=== PATIENT | female | born 1985 | race African-American/Black ===

== ENCOUNTER 2023-07-06 11:15 | Emergency (ER) | payer MEDICARE, OTHER ==
[~2023-07-06] VITALS: Ht 160 cm; Wt 87.6 kg
[2023-07-06 11:15] VITALS: BP 130/86; TEMP 98.9; O2SAT 100
[2023-07-06] MEDS ORDERED: DEPA500T2 PO (11:29)
[2023-07-06] MEDS ORDERED: RISP4TAB33 PO (11:29)
[2023-07-06] MEDS ORDERED: LEXA1TAB2 PO ×2 (11:29→15:38)
[2023-07-06] MEDS ORDERED: SUBO12MI SL (11:29)
[2023-07-06 13:49] LABS: HEMATOCRIT 42.2 % (36.0-47.0); HEMOGLOBIN 14.1 g/dl (12.0-15.5); MEAN CORPUSCULAR HEMOGLOBIN 28.1 pg (27.0-33.0); MEAN CORPUSCULAR HGB CONC 33.4 g/dl (32.0-36.5); MEAN CORPUSCULAR VOLUME 84.1 fl (80.0-96.0); PLATELET COUNT, AUTOMATED 396 10^3/uL (150-450); RED BLOOD COUNT 5.02 10^6/uL (4.00-5.40); WHITE BLOOD COUNT 8.4 10^3/uL (4.0-10.0)
[2023-07-06 14:15] LABS: AMPHETAMINES LEVEL URINE NEGATIVE (NEGATIVE)
[2023-07-06 14:16] LABS: BARBITURATES URINE NEGATIVE (NEGATIVE); BENZODIAZEPINES URINE NEGATIVE (NEGATIVE); COCAINE METABOLITE URINE NEGATIVE (NEGATIVE); METHADONE URINE NEGATIVE (NEGATIVE); OPIATES URINE NEGATIVE (NEGATIVE); PHENCYCLIDINE URINE NEGATIVE (NEGATIVE)
[2023-07-06 14:17] LABS: HCG, SERUM QUALITATIVE NEGATIVE (NEGATIVE)
[2023-07-06 14:18] LABS: ETHYL ALCOHOL (ETHANOL) 0.006 % (0.000-0.010)
[2023-07-06 14:20] LABS: ALBUMIN 3.4 G/DL (3.2-5.2); ALKALINE PHOSPHATASE 134 U/L (46-116); ALT/SGPT 46 U/L (7.0-40); AST/SGOT 25 U/L (<34); BILIRUBIN,DIRECT 0.1 MG/DL (<0.4); BILIRUBIN,TOTAL 0.3 MG/DL (0.3-1.2); BLOOD UREA NITROGEN 5 MG/DL (9-23); CALCIUM LEVEL 9.3 MG/DL (8.5-10.1); CARBON DIOXIDE LEVEL 26 MMOL/L (20-31); CHLORIDE LEVEL 106 MMOL/L (98-107); CREATININE FOR GFR 0.64 MG/DL (0.55-1.30); GLOMERULAR FILTRATION RATE > 60.0 (>60); GLUCOSE, FASTING 105 MG/DL (60-100); POTASSIUM SERUM 3.6 MMOL/L (3.5-5.1); SALICYLATE LEVEL < 3.0 MG/DL (<30); SODIUM LEVEL 139 MMOL/L (136-145); TOTAL PROTEIN 7.1 G/DL (5.7-8.2)
[2023-07-06 14:21] LABS: THYROID STIMULATING HORMONE 0.314 uIU/ML (0.55-4.78)
[2023-07-06 14:25] LABS: CANNABINOIDS URINE POSITIVE (NEGATIVE)
[2023-07-06] MEDS ORDERED: TOPA50TA8 PO (15:38)
[2023-07-06] MEDS ORDERED: SUBO8MIS SL (15:38)
[2023-07-06] MEDS ORDERED: HYDR-3363 PO (15:38)
[2023-07-06] MEDS ORDERED: PRAZ2CAP PO (15:38)
[2023-07-06] MEDS ORDERED: ZYPR20TA PO (15:38)
[2023-07-06] MEDS ORDERED: BUPR1SUB5 SL (16:37)
== END 2023-07-06 16:23 | disposition home or self-care (01) ==
LOC: M ED 11:15
DX: Z76.0 Encounter for issue of repeat prescription (principal); F32.A Depression, unspecified; F20.9 Schizophrenia, unspecified; F41.9 Anxiety disorder, unspecified; Z79.899 Other long term (current) drug therapy; Z88.2 Allergy status to sulfonamides

== ENCOUNTER 2023-08-03 14:46 | Emergency (ER) | payer MEDICARE, OTHER ==
[~2023-08-03] VITALS: Ht 160 cm; Wt 94.0 kg
[~2023-08-03 14:46] MED LIST: BUPR1SUB5 SL; DEPA500T2 PO; HYDR-3363 PO; LEXA1TAB2 PO; PRAZ2CAP PO; RISP4TAB33 PO; SUBO12MI SL; SUBO8MIS SL; TOPA50TA8 PO; ZYPR20TA PO
[2023-08-03 18:01] VITALS: BP 121/69; TEMP 98.7; O2SAT 97
== END 2023-08-03 18:59 | disposition home or self-care (01) ==
LOC: M ED 14:46
DX: Z76.0 Encounter for issue of repeat prescription (principal); F41.9 Anxiety disorder, unspecified; F32.A Depression, unspecified; Z88.2 Allergy status to sulfonamides; Z79.899 Other long term (current) drug therapy